=== PATIENT | male | born 1930 | race Caucasian/White ===

== ENCOUNTER 2016-11-22 14:00 | Inpatient (IN) | payer MEDICARE ==
[~2016-11-22] VITALS: Ht 179.1 cm; Wt 79.4 kg
--- NOTE | ~2016-11-22 | ECHO ---
Transthoracic Echocardiography Report (TTE) Demographics Patient Name GIANNI SINGH Date of Study 11/23/2016 Patient Number [id number] Visit Number [id number] Date of 1930 Room Number G6316 Gender Male Number Age 86 year(s) Referring Meredith Bobby [employer]er [employer] Blessing Salas, Physician RT,RVT,RDCS Physician Interpreting Sandy Hussein [employer] Department Supervisor Physician Supervising Ordering Meredith Bobby DO MD/MLP Physician Nurse Stress Laboratory [place] Conclusions Contractility Score Summary Global Left Ventricular Hypokinesis was noted. Summary The estimated left ventricular ejection fraction is 50-55% with normal wall thickness, WM and internal dimension. The left atrium is severely dilated. The right atrium is moderate to severely dilated. Dilated IVC with poor inspiratory collapse consistent with elevated RA pressure. Mildly dilated right ventricle. Pleural effusion present. Moderate-severe mitral regurgitation by color Doppler. There is mild aortic stenosis by the Continuity Equation. The peak velocity is 2.5 m/s, the mean gradient is 13 mmHg, and the valve area based on the continuity equation is 0.94 cm2, stroke volume index is 51 ml/m2. There is severe pulmonary hypertension. The pulmonary pressure (RVSP) is in the upper 60s or low 70s. Moderate-severe tricuspid regurgitation by color Doppler. Procedure Type of Study TTE procedure:2D Echocardiogram, M-Mode, Doppler , Color Doppler. Procedure Date Date: 11/23/2016 Start: 02:48 PM Study Location: Inpatient Portable Technical Quality: Good visualization Indications:Congestive heart failure. Additional Indications:Pleural effusion Appropriate Use Criteria: 9 Patient Status: Routine HR: 72 bpm BP: 99/59 mmHg M-Mode/2D Measurements LV Diastolic Dimension: 4.2 cm LV Systolic Dimension: 3.24 cm LV Septum Diastolic: 1.18 cm LV Septum Systolic: 1.33 cm LV PW Diastolic: 1.15 cm LV PW Systolic: 1.25 cm Cardiac Output: 3.66 l/min AO Root Dimension: 3.3 cm RV Diastolic Dimension: 3.2 cm LA Dimension: 3.9 cm EF Estimated: 45 % LA volume: 115 ml RV Base: 5 cm LVOT: 2 cm RV Mid: 3.9 cm LVOT VTI: 16.2 cm RV Length: 6.6 cm LV Stroke volume: 50.87 ml Doppler Measurements AV Peak Velocity: 2.51 m/s MV Peak E-Wave: 1.58 m/s AV Peak Gradient: 25.2 mmHg MV Peak A-Wave: 0.6 m/s AV Mean Gradient: 13 mmHg MV E/A Ratio: 2.62 LVOT Peak Velocity: 0.82 m/s MV P1/2t: 55 msec TR Gradient:25 mmHg PV Peak Velocity: 0.86 m/s Estimated RAP:10 mmHg PV Peak Gradient: 2.94 mmHg Estimated RVSP: 35 mmHg Estimated PASP: 35 mmHg E' Septal Velocity: 0.05 m/s A' Septal Velocity: 0.05 m/s MV E/E' Ratio: 34 Findings Left Ventricle Normal left ventricle size and function. Right Ventricle Mildly dilated right ventricle. Left Atrium The left atrium is severely dilated by LA volume index measurement. Right Atrium The right atrium is moderate to severely dilated. Dilated IVC with poor inspiratory collapse consistent with elevated RA pressure. Mitral Valve Normal mitral valve structure and function. Moderate-severe mitral regurgitation by color Doppler. Aortic Valve There is mild aortic stenosis by the Continuity Equation. The peak velocity is 2.5 m/s, the mean gradient is 13 mmHg, and the valve area based on the continuity equation is 0.94 cm2, stroke volume index is 51 ml/m2. Tricuspid Valve There is severe pulmonary hypertension. The pulmonary pressure (RVSP) is 62 mmHg. Moderate-severe tricuspid regurgitation by color Doppler. Pulmonic Valve Normal pulmonic valve structure and function. Pericardial Effusion No evidence of pericardial effusion. Miscellaneous Visualized portions of the aortic root and ascending aorta appear normal in size. Pleural Effusion Pleural effusion present. Contractility Score LV regional wall motion:(0-Non visualized 1-Normal 2-Hypokinesis 3-Akinesis 4-Dyskinesis 5-Aneurysm) Signature dtt: Jovita Delgado dtd: 11/23/16 1448 Physician Self Edit
--- NOTE | ~2016-11-22 | DS ---
PATIENT'S NAME: GIANNI SINGH [facility] AGE: 86 Y [address] ROOM: [address] [place] [address] LOCATION: GPCU ADMIT DATE: 11/22/2016 Discharge Summary DISCHARGE DATE: 11/30/2016 FAMILY PHYSICIAN: ANA MARIA LUI ATTENDING PHYSICIAN: Nakul MADDEN PRINCIPAL DIAGNOSES: 1. Palls-ce-cykflji hypoxic respiratory failure. 2. Heart failure with preserved ejection fraction [id number] exacerbation. 3. Acute kidney injury on chronic kidney disease, stage 3. 4. Severe chronic obstructive pulmonary disease exacerbation. 5. Hypertension. 6. Hyperlipidemia. 7. Hypothyroidism. HOSPITAL COURSE: An 86-year-old gentleman with multiple advanced comorbidities including chronic kidney disease as well as [place] Heart Association class III heart failure who was admitted to the [facility] from [place], [place] with acute shortness of breath, which have been worsening over the course of many days. He was found to have acute respiratory hypoxic failure. He was put on supplemental oxygen. Initial chest x-ray done showed bilateral pleural effusions as well as pulmonary edema. Initial lab work did show DANDY on CKD as well. His hemoglobin on presentation was 15. He was aggressively diuresed over the course of many days in the hospital. We took out about 12 L in total with the diuresis. Cardiology consultation was made as well as Cardiothoracic Surgery, but there was no big pleural effusion to be tapped and it got cleared with the IV diuresis. He was rather hard to get diuresed. He was put on Lasix drip in order to achieve that. It was noted in the hospital that his hemoglobin dropped from 15 to 10 over the course of many days. Gastroenterology consultation was made and they recommended that he have a known polyp that needs to be removed sometime. Due to his acute respiratory failure, secondary to heart failure, Gastroenterology did not deem that this is safe at this point to do any procedure. They want to make an appointment in 1 month for the full workup of anemia as well as colonoscopy. Echocardiography was done in the hospital, which did show heart failure with preserved ejection fraction, ejection fraction about 55%, he has severe TR, severely dilated both atria. He also got a CAT scan done on the admission to the hospital, which showed the findings consistent with acute overload, secondary to heart failure, and they could not include an infectious process. His inflammatory markers like procalcitonin was elevated and he was treated for pneumonia as well. His kidney function did improve little bit, but did not return to baseline. Apparently, this could be his new baseline. He will be discharged home on torsemide 20 mg p.o. b.i.d. He will need an immediate followup with PATIENT'S NAME: GIANNI SINGH [facility] AGE: 86 Y [address] ROOM: [id number] [place] [id number] LOCATION: GPCU ADMIT DATE: 11/22/2016 Discharge Summary DISCHARGE DATE: 11/30/2016 FAMILY PHYSICIAN: ANA MARIA LUI ATTENDING PHYSICIAN: Nakul MADDEN the physician in next 48 hours with a BMP to adjust the doses of torsemide. He also has atrial fibrillation, but he is not on any oral anticoagulation because of his anemia. Regarding his advanced comorbidities and advanced age, we consulted Palliative Care. The patient is DNR/DNI. I would recommend to pursue this avenue in future as well. DISCHARGE MEDICATIONS: Includes: 1. Amiodarone 200 mg p.o. everyday. 2. Pravastatin 40 mg p.o. every night. 3. Docusate 200 mg p.o. twice daily. 4. Levothyroxine 150 mcg p.o. every morning. 5. Tamsulosin 0.4 mg p.o. every night at bedtime. 6. DuoNeb 1 vial inhalation 4 times daily. 7. DuoNeb 1 vial inhalation every night at bedtime. 8. Tylenol 650 mg p.o. q.6 h. p.r.n. 9. Saliva Substitutes. 10. Pantoprazole 40 mg p.o. everyday. 11. Lactobacillus 1 capsule p.o. twice daily. 12. Polyvinyl chloride. 13. The new medications are torsemide 20 mg p.o. b.i.d. I did have pleasure to speak to Dr. Lui. I discussed the course of hospitalization, prognosis, and the need of a BMP and a physician visit within next 48 hours. I spent 1 hour in discharge planning and coordinating care of this patient. Most of the time was spent with the patient explaining to him about his prognosis, current condition. I also emphasized keeping the Gastroenterology appointment in 1 month. PROGRESS NOTE FROM THE DAY OF THE DISCHARGE: SUBJECTIVE: He is feeling much better. He does not complain of any shortness of breath. He did not complain of any fever or chills. No cough production. OBJECTIVE: VITAL SIGNS: Include blood pressure 118/77, pulse 74, respiratory rate of 18, and temperature 97.5. LUNGS: Clear to auscultation bilaterally today. CARDIOVASCULAR: Variable S1, normal S2. No murmurs, gallops, or rubs. EXTREMITIES: Did not reveal any edema contrary to +2 edema when he arrived to the hospital. ABDOMEN: Soft, nontender, nondistended. Bowel sounds present. LABORATORY DATA: Notable labs included pro-BNP of 39,000, which is down from 59,000, white count of 9.8, hemoglobin of 9.5, and platelets of 202. Other notable labs include a creatinine of 2.2 and a BUN of 67 and his previous baseline has been around 1.8 to 2. PATIENT'S NAME: GIANNI SINGH [facility] AGE: 86 Y [address] ROOM: [place] [address] [facility]ATION: [facility] ADMIT DATE: 11/22/2016 Discharge Summary DISCHARGE DATE: 11/30/2016 FAMILY PHYSICIAN: ANA MARIA LUI ATTENDING PHYSICIAN: Nakul MADDEN HEMODYNAMICS ON DISCHARGE: Stable. MD MAIA WOOD/jean /[id number] d: 12/01/16 0346 t: 12/03/16 1323, DISCHARGE SUMMARY
--- NOTE | ~2016-11-22 | CON ---
PATIENT'S NAME: ESTHER SINGHTER Bhavana [facility] AGE: 86 Y [address] ROOM: [place] [address] LOCATION: GPCU ADMIT DATE: 11/22/2016 Consultation DISCHARGE DATE: 11/30/2016 FAMILY PHYSICIAN: ANA MARIA JORDAN ATTENDING PHYSICIAN: Nakul MADDEN DATE OF CONSULTATION: 11/29/2016 REFERRING PHYSICIAN: Lane Harper DO REFERRING PROVIDER: Salas Marina MD REASON FOR CONSULTATION: Anemia. HISTORY OF PRESENT ILLNESS: This is a very pleasant, 86-year-old gentleman who is well known to our Gastroenterology Services from previous admission. The patient was hospitalized in February and March of 2016. At that point, the patient was found to be anemic as we did complete an upper endoscopy. This was a normal study. A full colonoscopy was completed, but limited secondary to the patient having chest tubes at that time and unable to be positioned correctly. There were 3 polyps measuring less than 5 mm in size found in the rectum. Polyps were removed at that point. There were also 2 small distal colon polyps that were not removed as they were located on hemorrhoids. There was also a large, flat polyp on the fold in the ascending colon that was biopsied that showed adenoma, though not removed secondary to inability to rotate the patient secondary to his chest tubes. We were asked to see in consultation for this hospitalization as the patient was admitted on November 22, 2016, with worsening of acute on chronic hypoxic respiratory failure. The patient was seen and examined. He denies any known blood in his stool. The patient's hemoglobin on admission was 10.9, recheck this morning was 9.2. It appears that his hemoglobin has remained stable with no evidence of blood loss, though Hematest positive. The patient denies any current chest pain or chest pressure. He does get significantly short of breath with ambulation and more movement. The patient has been currently residing at a alf for rehab needs as plan for the patient to be returned to the alf the following day. The patient currently denies any complaints at this time. PAST MEDICAL HISTORY: Chronic kidney disease, COPD, CHF, mitral regurgitation, diastolic heart failure, atrial fibrillation, and pulmonary hypertension. PAST SURGICAL HISTORY: PATIENT'S NAME: SAMANTHA [facility] AGE: 86 Y [address] ROOM: [address] [place], [place] [address] LOCATION: GPCU ADMIT DATE: 11/22/2016 Consultation DISCHARGE DATE: 11/30/2016 FAMILY PHYSICIAN: ANA MARIA JORDAN ATTENDING PHYSICIAN: Nakul MADDEN Chest tube placement, carotid endarterectomy, and upper endoscopy and colonoscopy completed in March 2016. SOCIAL HISTORY: The patient lives with his . He currently resides at a alf for rehab needs. He has a 70-year history of tobacco use and has not smoked for the past 6 months now. The patient denies any alcohol or illicit drug use. FAMILY HISTORY: Positive for cardiovascular disease in his brother. The patient's father had a stroke. ALLERGIES: KEFLEX. CURRENT MEDICATIONS: Please refer to the medication administration record. REVIEW OF SYSTEMS: All point review of systems was completed, all were negative except for those identified in the History of Present Illness. PHYSICAL EXAMINATION: GENERAL: A very pleasant, 86-year-old gentleman who appears to be in no acute distress. VITAL SIGNS: Temperature 97.9, pulse of 79, respirations of 20, blood pressure 117/69, oxygen saturation is 93% on 2 L. SKIN: [place], warm, and dry. No jaundice. HEENT: Head is normocephalic and atraumatic. Pupils are equal, round, and reactive to light. Sclerae are clear, nonicteric. Oral mucosa is pink and moist. No thyromegaly. NECK: Soft and supple. CARDIOVASCULAR: Irregularly irregular. Grade 1 systolic murmur heard on the left side. ABDOMEN: Soft, round, nontender, and nondistended. Bowel sounds positive x4 quadrants. MUSCULOSKELETAL: No muscle weakness or atrophy. EXTREMITIES: No clubbing or cyanosis. 2+ edema noted to bilateral lower extremities, though this has improved. NEUROLOGICAL: Grossly nonfocal. LABORATORY AND DIAGNOSTIC DATA: White blood cell count 9.6, hemoglobin of 9.2, hematocrit of 30.3, MCV is 89.90, and platelets of 177. Chemistry panel includes a glucose of 176, BUN of 68, creatinine is 2.2, sodium 144, potassium 4.1, chloride of 101, and CO2 PATIENT'S NAME: SAMANTHA GIANNI Bhavana [facility] AGE: 86 Y [address] ROOM: [address] [place], [place] [address] LOCATION: GPCU ADMIT DATE: 11/22/2016 Consultation DISCHARGE DATE: 11/30/2016 FAMILY PHYSICIAN: ANA MARIA JORDAN ATTENDING PHYSICIAN: Nakul MADDEN of 37. Albumin of 2.9. Hematest positive stool. ASSESSMENT AND PLAN: Again, this is a very pleasant, 86-year-old gentleman who was recently admitted with acute on chronic hypoxic respiratory failure. We were asked to see in consultation for the patient's anemia. The patient previously had undergone an upper endoscopy and colonoscopy in March 2016. He did note that a large flat polyp was not removed secondary to the patient's inability to rotate secondary to chest tubes at that time. The patient does need outpatient followup at this point. When medically optimized, the patient will need a repeat colonoscopy and possible upper endoscopy for evaluation of the anemia as well as polypectomy. Upon discharge, the patient will be scheduled to follow up in our clinic in one month for continued monitoring as well as evaluation for medically optimal to undergo an upper endoscopy and colonoscopy. Thank you for this consult. AMBER SOLIS APRN FOR MD DELLA BREWER/jean /[id number] d: 11/30/16 1145 t: 12/05/16 1344, CONSULTATION REPORT
--- NOTE | ~2016-11-22 | HP ---
PATIENT'S NAME: GIANNI SINGH [facility] AGE: 86 Y [address] ROOM: [address] [place], [place] [address] LOCATION[facility] ADMIT DATE: 11/22/2016 History & Physical DISCHARGE DATE: FAMILY PHYSICIAN: PHYSICIAN, UNKNOWN ATTENDING PHYSICIAN: Nakul MADDEN DATE OF SERVICE: CHIEF COMPLAINT: Worsening of acute on chronic hypoxic respiratory failure. HISTORY OF PRESENT ILLNESS: The patient is an 86-year-old gentleman with a past medical history significant for COPD, diastolic heart failure, pulmonary hypertension, atrial fibrillation, and mitral regurg, who presents in here from [facility] with worsening of acute hypoxic respiratory failure and pleural effusion. The patient was admitted at [facility] on November 16 after a fall. The patient was admitted and was treated with physical therapy and occupational therapy. The patient also was found to be in worsening hypoxic respiratory failure. The patient was on 2 L home oxygen at home, however, was found to require more oxygen demand. The patient was started on diuretic treatment with some improvement. However, symptoms could not resolve. Chest x-ray done at outside hospital shows worsening of pleural effusion especially on the right side. Our hospital was contacted for possible pleural effusion, thoracocentesis or PleurX placement for drainage. Dr. Samano was contacted. Dr. Harper had seen the patient in the past and had placed a PleurX catheter on the right and a pigtail on the left on the last admission in 2015. Thus, the patient was accepted to our hospital for further evaluation of pleural effusion and heart failure. The patient's last admission to our hospital in June 2016 for possible infected PleurX catheter. PleurX was taken at that admission, and the patient was treated with Levaquin for a positive wound culture for Staph. The patient currently reports of worsening of shortness of breath and edema. The patient denies chest pain, abdominal pain, nausea, vomiting, diarrhea, fever, and productive cough but reports of wheezing. MEDICAL HISTORY: Chronic kidney disease, COPD, CHF, mitral regurg, diastolic heart failure, atrial fibrillation, and pulmonary hypertension. SURGICAL HISTORY: Chest tube placement, carotid endarterectomy. SOCIAL HISTORY: The patient lives with his . He has had 70-year history of tobacco use but has not smoked for 6 months now. The patient denies drinking. PATIENT'S NAME: GIANNI SINGH [facility] AGE: 86 Y [address] ROOM: [address] [place], [place] [address] LOC[facility] ADMIT DATE: 11/22/2016 History & Physical DISCHARGE DATE: FAMILY PHYSICIAN: PHYSICIAN, UNKNOWN ATTENDING PHYSICIAN: Nakul MADDEN FAMILY HISTORY: Positive for cardiovascular disease in brother and stroke in father. REVIEW OF SYSTEMS: All systems have been reviewed and are negative except for what I mentioned in the HPI. PHYSICAL EXAMINATION: VITAL SIGNS: Afebrile, blood pressure 131/81, heart rate of 91, oxygen saturation of 92 on 10 L nasal cannula. GENERAL APPEARANCE: The patient is in mild respiratory distress. HEAD: Normocephalic, atraumatic. EYES: Sclerae nonicteric. NOSE: No nasal discharge. EARS: No ear discharge. ORAL CAVITY: Dry oral mucosa. NECK: Positive JVD. CHEST: Bibasilar rales and mild expiratory wheezing. HEART: Irregularly irregular. Grade 1 systolic murmur heard on the left lower sternal border. ABDOMEN: Soft, nontender, and nondistended. SKIN: Warm to touch. EXTREMITIES: 3+ pitting edema up to abdomen. DIRECTOR OF CONTENT MARKETING: Alert and oriented x3. Motor and sensory grossly intact. MUSCULOSKELETAL: Range of motion intact. No obvious joint effusion. LABORATORY DATA: Labs drawn at [place] shows a hemoglobin of 9.8, white blood cell count of 8.6. Sodium of 143, potassium 3.7, CO2 of 32, and creatinine of 1.9. IMAGING DATA: Chest x-ray done here shows bilateral pleural effusion and right-sided intrapleural fluid. Chest x-ray read by me, waiting for radiology report. ASSESSMENT AND PLAN: 1. Acute on chronic hypoxic respiratory failure. Etiology most likely secondary to pleural effusion due to diastolic heart failure and worsening of pulmonary hypertension. The patient appears to be fluid overloaded. Chest x-ray showed vascular congestion and intrapleural effusion with bilateral pleural effusion. The patient appears fluid overloaded with edema up to abdomen and positive JVD and bibasilar rales. We will start the patient on Lasix drip 5 mg an hour as the patient might also be fluid dependent as he has known pulmonary hypertension with right ventricular dilation. We will diurese the patient gently, follow the PATIENT'S NAME: SINGH, GIANNI L [facility] AGE: 86 Y [address] ROOM: [address] [place] [address] [facility] ADMIT DATE: 11/22/2016 History & Physical DISCHARGE DATE: FAMILY PHYSICIAN: PHYSICIAN, UNKNOWN ATTENDING PHYSICIAN: Nakul MADDEN patient clinically. We will have strict I's and O's and volume restriction of 1.5 L in 24 hours. The patient also might be having underlying chronic obstructive pulmonary disease exacerbation as the patient is a known chronic obstructive pulmonary disease with 70-year history of smoking. On physical, the patient appears to be wheezing. We will start the patient on DuoNeb q.4 hours and Solu-Medrol 40 mg b.i.d. We will acquire a CT chest to further investigate the pleura effusion. To consult Dr. Harper for possible pleural fluid drainage. 2. Decompensated diastolic heart failure. See problem #1. 3. Acute chronic obstructive pulmonary disease exacerbation. See problem #1. 4. Atrial fibrillation, currently rate controlled. We will continue home medication of amiodarone. Currently, the patient is not on blood thinner. The patient has not been on blood thinner as an outpatient also. We will hold blood thinner as the patient might have pleural effusion drainage for now. To discuss anticoagulation with technical training manager, Dr. Grove. 5. Hypothyroidism. Continue medication. 6. Pleural effusion. See problem #1. 7. Chronic kidney disease stage 3, is stable, most likely secondary to cardiorenal. The patient's creatinine currently is 1.9 and baseline is 1.9 and 1.8, stable, follow clinically. 8. Physical deconditioning. We will acquire PT, OT when the patient is stable. 9. Code status. Discussion was made about code status with the patient. The patient's code status is DNR/DNI on admission. I have personally reviewed the patient's medical record including but not limited to blood work and radiology. Total time spent with the patient is greater than 70 minutes, more than 50% of the time is spent in direct patient care and patient consultation. Case was reviewed with the patient, nursing staff. Question was answered to the patient's satisfaction. Case was reviewed with Dr. Harper. We will admit the patient to as an inpatient. Code status on admission is DNR/DNI. MD KIERRA DOWNING/jean /[id number] D: [id number] T: [id number] HISTORY & PHYSICAL
--- NOTE | ~2016-11-22 | CON ---
PATIENT'S NAME: GIANNI SINGH [facility] AGE: 86 Y [address] ROOM: [place] [address] LOCATION: GPCU ADMIT DATE: 11/22/2016 Consultation DISCHARGE DATE: FAMILY PHYSICIAN: ANA MARIA JORDAN DO ATTENDING PHYSICIAN: Nakul BELLO DATE OF CONSULTATION: 11/27/2016 REFERRING PHYSICIAN: Lane Harper DO The patient of Dr. Bello. Dear Dr. Bello: Thank you for asking me to see Mr. Singh who is an 86-year-old male patient who was hospitalized in [facility] on November 16 after a fall. He was given physical therapy and diuretic therapy because of congestive heart failure and hypoxic respiratory failure and eventually was transferred here as he was not getting any better. He has a history of pleural effusions in the past and PleurX tube was placed on the right and a pigtail on the left in 2015. Apparently, the PleurX catheter got infected and eventually got taken out and has had Staph growing out of it. The patient has been seeing Dr. Grove who had treated him in the past with Eliquis and amiodarone for paroxysmal atrial fibrillation. The patient also has peripheral vascular disease, normal ejection fraction, severely dilated left atrium and right atrium, increased right atrial pressures, dilated right ventricle pleural effusion on the left, odrnrmum-as-oiwftf MR, mild , and wjoccgil-la-trlsmw pulmonary hypertension with pulmonary pressures in the 60s and 70s with wyksuxpj-gi-flvdwc tricuspid regurgitation by echocardiogram on . MEDICAL HISTORY: The patient has history of diastolic congestive heart failure. In addition, he has history of GI bleed at some point, for which he has received some blood transfusions, CKD, hypertension, hyperlipidemia, hypothyroidism, and severe COPD. He quit smoking about 6 months ago. The patient has had no syncope or palpitation. He does have history of ankle swelling. LIST OF MEDICATIONS NOW: 1. Codeine. 2. Doxycycline 100 b.i.d. 3. Heparin 5000 every 8 hours. 4. Amiodarone 200 mg a day. PATIENT'S NAME: GIANNI SINGH [facility] AGE: 86 Y [address] ROOM: [place] [address] LOCATION: GPCU ADMIT DATE: 11/22/2016 Consultation DISCHARGE DATE: FAMILY PHYSICIAN: ANA MARIA JORDAN DO ATTENDING PHYSICIAN: Nakul BELLO 5. Levothyroxine 150 mcg a day. 6. Tamsulosin 0.4 mg. 7. Pravastatin 40 mg at bedtime. 8. Ipratropium and albuterol 4 times a day. 9. Prednisone. ALLERGIES: CEPHALEXIN. MEDICATIONS THAT ARE CURRENTLY HELD: Furosemide and lactulose. PAST MEDICAL HISTORY: 1. Abdominal aortic aneurysm repair. 2. Carotid endarterectomy. 3. Carotid grafting. 4. Right hip arthroplasty. SOCIAL HISTORY: The patient is . He smoked until 6 months ago. His appetite is not the best, sleep is not very good. FAMILY HISTORY: Brother had an WA at age of 40 and . Twin brother has had coronary artery disease. REVIEW OF SYSTEMS: Shortness of breath. 12-point review of systems reveal, 1. Macular degeneration. 2. Cataracts. 3. No chest pain. 4. History of melena and anemia. 5. CKD. 6. Urinary frequency and urgency. PHYSICAL EXAMINATION: VITAL SIGNS: His blood pressure is 120/80, heart rate is in the 60s and regular, respirations 18. HEENT: Normal. NECK: Supple with no JVD, thyromegaly, or carotid bruit. PMI is not well located. CARDIOVASCULAR: First and second heart sounds are regular. He does have a systolic murmur best heard in the left sternal edge, grade 1/6. ABDOMEN: Soft. EXTREMITIES: Reveal 1+ edema. PATIENT'S NAME: GIANNI SINGH [facility] AGE: 86 Y [address] ROOM: [id number] [place], [place] [id number] [facility] ADMIT DATE: 11/22/2016 Consultation DISCHARGE DATE: FAMILY PHYSICIAN: ANA MARIA JORDAN DO ATTENDING PHYSICIAN: Nakul BELLO CHEST: Chest examination, he does have moving air, but he does have some crackles in his bases bilaterally. ASSESSMENT: 1. Diastolic congestive heart failure. 2. The patient probably has underlying coronary artery disease. 3. History arthrosclerotic disease in the form of abdominal aortic aneurysm repair and carotid endarterectomy. 4. History of paroxysmal atrial fibrillation, currently off oral anticoagulation. I will check his Hemoccults and if it is negative, he should go back on anticoagulation. 5. Chronic kidney disease probably is secondary to the diuretic that has been used so far. RECOMMENDATION: We will continue to diuresis, and once he is quite dry, we will try to slowly reintroduce his usual medications and try to get his renal function back towards normal. Again, I appreciate this opportunity to participate in the care of Mr. Singh. MD AYANA GARNICA/jean /[id number] d: 11/28/16 1415 t: 12/05/16 1643, CONSULTATION REPORT
--- NOTE | ~2016-11-22 | CON ---
PATIENT'S NAME: ESTHER SINGHTER [facility] AGE: 86 Y [address] ROOM: [address] [place] [address] [facility] AD[facility] DATE: 11/22/2016 Consultation DISCHARGE DATE: FAMILY PHYSICIAN: ANA MARIA JORDAN DO ATTENDING PHYSICIAN: Nakul MADDEN DATE OF CONSULTATION: 11/23/2016 REFERRING PHYSICIAN: Lane Harper DO LOCATION: [place] [address]. REASON FOR CONSULTATION: This is a palliative care for chronic disease talk and goals of care. HISTORY OF PRESENT ILLNESS: This 86-year-old frail male has had several admissions over the past 6 months in March, April, June, after last admission was sent to a swing bed the in [place], [place], was there for a few months and was home for approximately a month and declined. He had recently had a PleurX drain put in in June and that drain was pulled by Dr. Harper. He comes in with acute respiratory failure with a history of chronic hypoxia. He has a known history of COPD, diastolic heart failure, pulmonary hypertension, atrial fibrillation, and mitral regurgitation. He went to the [facility] and continued to decline being hypoxic and transferred to [facility] for a higher level of care. Currently, the patient complains of being very short of breath, is on oxygen 10 L, his respirations are in the 50s, very short of breath. He denies any chest pain, abdominal pain, nausea, or vomiting. He does have a productive cough and reports wheezing. PAST MEDICAL HISTORY: Chronic kidney disease, stage 3; mitral regurgitation; pulmonary hypertension; COPD; chronic hypoxia; respiratory failure; history of a GI bleed; diastolic heart failure; history of parapneumonic effusion, loculation, and left pleural effusion and recurrent right pleural effusion with PleurX drain which was put in; and chronic atrial fibrillation. PAST SURGICAL HISTORY: Chest tube placement, PleurX drain placement, carotid endarterectomy, tonsillectomy, cataract removal, right hip hemiarthroplasty, and colonoscopy with adenomatous changes. SOCIAL HISTORY: He has been living at home with his . He is a former smoker, has a 70- txae-lek-aotv history, quit 4-5 months ago. Does have an alcohol history and [facility]GE[facility] 86 Y [address] 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 No illicit drug use. REVIEW OF SYSTEMS: A complete review of systems was done and is negative except as mentioned in the HPI or listed below. GI: Last bowel movement was 11/14. Appetite has been decreased. MUSCULOSKELETAL: Increased weakness. states he could not walk a few feet to get to the car before admission, had been declining at home, very weak. PHYSICAL EXAMINATION: GENERAL: This is a frail 86-year-old male, in respiratory distress. VITAL SIGNS: Temperature 97.8, pulse 82, respirations 28, blood pressure 131/89, and O2 saturations 82%. He is 5 feet 10 inches and weighs 174 pounds with a BMI of 24.9; on last admission in June, the patient's weight was 132 with a BMI of 18.4. GENERAL: Alert, slightly anxious due to respiratory distress. SKIN: Warm and dry. Color pale. HEENT: Normocephalic and atraumatic. Sclerae are nonicteric. Conjunctivae are pale pink. Mouth is pink and moist without exudate. LYMPH: No cervical adenopathy or thyromegaly. RESPIRATORY: Coarse and diminished with wheezes bilaterally. CARDIAC: S1, S2, tachy. Edema noted 3 to 4+ up to groin. Groin is swollen and edematous. NEURO: Grossly intact. No deficits. MUSCULOSKELETAL: Able to move all extremities. Decreased muscle mass. EXTREMITIES: No cyanosis or deformity. Palliative performance scale is 20%, totally bed-bound, unable to do any activity, total care, decreased intake minimal to sips, and conscious level is full. IMPRESSION: 1. Respiratory distress. 2. Edema. 3. Anxiety. PLAN: 1. Discuss with the patient shortly his overall condition. He has a fair understanding of his diastolic heart failure, COPD, respiratory distress, increasing edema, pleural effusions with PleurX drain history in June, and overall decline in the past few weeks and being at home. I did not discuss a long time due to the patient's distress. We will try to get a hold of and have a longer discussion when she comes possibly tomorrow or the next day. PATIENT'S NAME: GIANNI SINGH [facility] AGE: 86 Y [address] ROOM: [id number] [place] [id number] [facility] ADMIT DATE: 11/22/2016 Consultation DISCHARGE DATE: FAMILY PHYSICIAN: ANA MARIA JORDAN DO ATTENDING PHYSICIAN: Nakul MADDEN 2. Code status and advanced directives: The patient is a do not resuscitate/do not intubate. The patient states he does not have an advanced directive. He is , has 2 sons, one lives close by and one lives in [place]. 3. Goals: Breathe easier. Okay to try BiPAP to help with breathing. We will address goals of care and long-term goals and do education on end- stage COPD and heart failure. Total time was 35 minutes with 30 minutes for counseling and coordination of care. Thank you for allowing me to assist this patient and family. CARINE TOTH NP FOR MD JOEY RENEE/jean /[id number] d: 11/24/16 2330 t: 12/02/16 0743, CONSULTATION REPORT
[~2016-11-22 14:00] MED LIST: ARTIFICIAL TEAR15 ML OPHTH; BACITRACIN ZIN1 EAC1 TOP; BACTROBAN TOP; CALCIUM 600 +1 EAC6 PO; CALMOSEPTINE OI71 GM TOP; CETAPHIL CREAM454 GM TOP; COLACE100 MG PO; CORDARONE,PACE200 MG PO; DIFLUCAN100 MG PO; ELIQUIS2.5 MG PO; FLOMAX0.4 MG PO; FLORASTOR250 MG PO; FLORINEF0.1 MG PO; IPRAT-ALBUT 0.5-3 ML INH; K-TAB 10MEQ10 MEQ PO; LASIX40 MG PO; LEVAQUIN 250 M250 MG PO; LEVOTHROID (S150 MCG PO; LOPRESSOR50 M1 PO; MAXZIDE-751 TAB PO; MILK OF MA400 MG/5 M PO; NICODERM / HABIT7 MG TRANS; PRAVACHOL40 MG PO; PRESERVISION A1 EAC1 PO; PROAMATINE5 MG PO; PROBIOTIC1 EAC1 PO; PROTONIX40 MG PO; TAPAZOLE5 MG PO; VITAMIN D PO
[2016-11-22] MEDS ORDERED: FLOMAX0.4 MG PO (16:17)
[2016-11-22] MEDS ORDERED: TYLENOL325 MG PO (16:19)
[2016-11-22] MEDS ORDERED: LASIX INJ40 MG/4 ML IVP (16:20)
[2016-11-22] MEDS ORDERED: DUONEB INH (16:21)
[2016-11-22] MEDS ORDERED: CALMOSEPTINE OI71 GM TOP (16:22)
[2016-11-22] MEDS ORDERED: BIOTENE)(DRY MO16 OZ PO (16:22)
[2016-11-22] MEDS ORDERED: AYR SALINE NA14.1 GM NOSE (16:23)
[2016-11-22] MEDS ORDERED: ARTIFICIAL TEAR15 ML OPHTH (16:31)
[2016-11-22] MEDS ORDERED: PROBIOTIC1 EAC1 PO (16:31)
[2016-11-22 17:25] LABS: BASOPHIL % 0.3 %; HEMATOCRIT 36.1 % (33.0-50.0); HEMOGLOBIN 10.9 g/dL (11.0-16.0); IMMATURE GRANULOCYTE # 0.1 K/uL (0.0-0.3); IMMATURE GRANULOCYTE % 0.7 %; LYMPHOCYTE # 0.6 K/uL (0.8-4.0); LYMPHOCYTE % 4.2 %; MCH 27.8 pg (27.0-34.0); MCHC 30.2 gm/dL (32.0-36.5); MCV 92.1 fl (83.0-98.0); MONOCYTE # 1.9 K/uL (0.0-1.0); MONOCYTE % 12.6 %; MPV 9.9 fl (9.4-12.4); NEUTROPHIL # (ANC) 12.4 K/uL (1.4-9.0); NEUTROPHIL % 82.2 %; NRBC % 0 /100WBC (0-0.00); PLATELET COUNT 126 K/uL (150-450); RBC 3.92 M/uL (3.50-5.50); RDW-CV 19.8 % (11.9-14.6); WBC 15.1 K/uL (4.0-11.0)
[2016-11-22 17:39] LABS: BICARBONATE 32.7 mmol/L (18.0-23.0); PCO2 47 mmHg (35-45); PO2 87 mmHg (80-90)
[2016-11-22 17:46] LABS: ALBUMIN 2.4 gm/dL (3.5-5.0); ANION GAP 10.9 (10.0-19.0); CALCIUM 7.9 mg/dL (8.5-10.5); CREATININE 2.2 mg/dL (0.6-1.3); MAGNESIUM 1.9 mg/dL (1.8-2.6); POTASSIUM 3.9 mMol/L (3.7-5.1); TOTAL BILIRUBIN 0.9 mg/dL (0.0-1.5); TOTAL PROTEIN 6.9 g/dL (6.0-8.4)
[2016-11-23 06:14] LABS: ALBUMIN 2.2 gm/dL (3.5-5.0); ANION GAP 11.6 (10.0-19.0); CALCIUM 7.9 mg/dL (8.5-10.5); POTASSIUM 3.6 mMol/L (3.7-5.1); TOTAL BILIRUBIN 0.9 mg/dL (0.0-1.5); TOTAL PROTEIN 6.4 g/dL (6.0-8.4)
[2016-11-23 17:11] LABS: ANION GAP 12.5 (10.0-19.0); CALCIUM 8.1 mg/dL (8.5-10.5); CREATININE 2.3 mg/dL (0.6-1.3); POTASSIUM 3.5 mMol/L (3.7-5.1)
[2016-11-24 06:29] LABS: ALBUMIN 2.9 gm/dL (3.5-5.0); ANION GAP 11.4 (10.0-19.0); CALCIUM 8.2 mg/dL (8.5-10.5); CREATININE 2.2 mg/dL (0.6-1.3); PHOSPHORUS 2.9 mg/dL (2.5-4.9); POTASSIUM 3.4 mMol/L (3.7-5.1)
[2016-11-25 03:53] LABS: HEMATOCRIT 30.9 % (33.0-50.0); HEMOGLOBIN 9.4 g/dL (11.0-16.0); MCH 27.6 pg (27.0-34.0); MCHC 30.4 gm/dL (32.0-36.5); MCV 90.9 fl (83.0-98.0); MPV 9.6 fl (9.4-12.4); RDW-CV 19.1 % (11.9-14.6)
[2016-11-25 04:00] LABS: PLATELET COUNT 152 K/uL (150-450)
[2016-11-25 04:08] LABS: ANION GAP 12.7 (10.0-19.0); CALCIUM 8.6 mg/dL (8.5-10.5); CREATININE 2.2 mg/dL (0.6-1.3); POTASSIUM 3.7 mMol/L (3.7-5.1)
[2016-11-25 05:00] LABS: ABSOLUTE NEUTROPHIL CT (ANC) 8.9 K/uL (1.4-9.0); BANDED NEUTROPHIL # 0.2 K/uL (0.0-0.1); BANDED NEUTROPHILS % 2 %; LYMPHOCYTE # 0.2 K/uL (0.8-4.0); LYMPHOCYTE % 2 %; MONOCYTE # 0.9 K/uL (0.0-1.0); SEGMENTED NEUTROPHIL # 8.7 K/uL (1.4-9.0); SEGMENTED NEUTROPHIL % 87 %
[2016-11-26 06:28] LABS: BASOPHIL % 0.1 %; EOSINOPHIL % 0.2 %; HEMATOCRIT 32.8 % (33.0-50.0); HEMOGLOBIN 9.7 g/dL (11.0-16.0); IMMATURE GRANULOCYTE # 0.1 K/uL (0.0-0.3); IMMATURE GRANULOCYTE % 0.6 %; LYMPHOCYTE # 0.5 K/uL (0.8-4.0); LYMPHOCYTE % 5.8 %; MCH 27.3 pg (27.0-34.0); MCHC 29.6 gm/dL (32.0-36.5); MCV 92.4 fl (83.0-98.0); MONOCYTE # 1.2 K/uL (0.0-1.0); MONOCYTE % 13.2 %; MPV 9.3 fl (9.4-12.4); NEUTROPHIL # (ANC) 7.1 K/uL (1.4-9.0); NEUTROPHIL % 80.1 %; NRBC % 0 /100WBC (0-0.00); PLATELET COUNT 150 K/uL (150-450); RBC 3.55 M/uL (3.50-5.50); RDW-CV 19.1 % (11.9-14.6); WBC 8.9 K/uL (4.0-11.0)
[2016-11-26 06:48] LABS: CREATININE 2.1 mg/dL (0.6-1.3)
[2016-11-27 04:04] LABS: HEMOGLOBIN 9.8 g/dL (11.0-16.0); MCH 27.3 pg (27.0-34.0); MCHC 29.7 gm/dL (32.0-36.5); MCV 91.9 fl (83.0-98.0); MPV 9.3 fl (9.4-12.4); PLATELET COUNT 138 K/uL (150-450); RBC 3.59 M/uL (3.50-5.50); RDW-CV 19.1 % (11.9-14.6); WBC 7.6 K/uL (4.0-11.0)
[2016-11-27 04:17] LABS: ANION GAP 11.2 (10.0-19.0); CALCIUM 8.7 mg/dL (8.5-10.5); CREATININE 2.1 mg/dL (0.6-1.3); POTASSIUM 4.2 mMol/L (3.7-5.1)
[2016-11-27 05:30] LABS: ABSOLUTE NEUTROPHIL CT (ANC) 7.3 K/uL (1.4-9.0); BANDED NEUTROPHIL # 0.3 K/uL (0.0-0.1); BANDED NEUTROPHILS % 4 %; LYMPHOCYTE # 0.2 K/uL (0.8-4.0); LYMPHOCYTE % 2 %; MONOCYTE # 0.1 K/uL (0.0-1.0); SEGMENTED NEUTROPHIL % 92 %
[2016-11-28 04:43] LABS: HEMATOCRIT 31.2 % (33.0-50.0); HEMOGLOBIN 9.3 g/dL (11.0-16.0); MCH 27.3 pg (27.0-34.0); MCHC 29.8 gm/dL (32.0-36.5); MCV 91.5 fl (83.0-98.0); PLATELET COUNT 160 K/uL (150-450); RBC 3.41 M/uL (3.50-5.50); WBC 8.6 K/uL (4.0-11.0)
[2016-11-28 05:10] LABS: CALCIUM 9.2 mg/dL (8.5-10.5); CREATININE 2.2 mg/dL (0.6-1.3)
[2016-11-28 05:42] LABS: ABSOLUTE NEUTROPHIL CT (ANC) 7.6 K/uL (1.4-9.0); BANDED NEUTROPHIL # 0.3 K/uL (0.0-0.1); BANDED NEUTROPHILS % 4 %; LYMPHOCYTE # 0.7 K/uL (0.8-4.0); LYMPHOCYTE % 8 %; MONOCYTE # 0.3 K/uL (0.0-1.0); SEGMENTED NEUTROPHIL # 7.2 K/uL (1.4-9.0); SEGMENTED NEUTROPHIL % 84 %
[2016-11-29 04:43] LABS: HEMATOCRIT 30.3 % (33.0-50.0); HEMOGLOBIN 9.2 g/dL (11.0-16.0); MCH 27.3 pg (27.0-34.0); MCHC 30.4 gm/dL (32.0-36.5); MCV 89.9 fl (83.0-98.0); MPV 8.9 fl (9.4-12.4); PLATELET COUNT 177 K/uL (150-450); RBC 3.37 M/uL (3.50-5.50); RDW-CV 18.9 % (11.9-14.6); WBC 9.6 K/uL (4.0-11.0)
[2016-11-29 05:03] LABS: CALCIUM 9.2 mg/dL (8.5-10.5); CREATININE 2.2 mg/dL (0.6-1.3); POTASSIUM 4.1 mMol/L (3.7-5.1)
[2016-11-29 05:04] LABS: ANION GAP 10.1 (10.0-19.0)
[2016-11-29 05:20] LABS: ABSOLUTE NEUTROPHIL CT (ANC) 8.8 K/uL (1.4-9.0); BANDED NEUTROPHIL # 0.4 K/uL (0.0-0.1); BANDED NEUTROPHILS % 4 %; LYMPHOCYTE # 0.4 K/uL (0.8-4.0); LYMPHOCYTE % 4 %; MONOCYTE # 0.4 K/uL (0.0-1.0); SEGMENTED NEUTROPHIL # 8.5 K/uL (1.4-9.0); SEGMENTED NEUTROPHIL % 88 %
[2016-11-30 04:48] LABS: HEMATOCRIT 31.3 % (33.0-50.0); HEMOGLOBIN 9.5 g/dL (11.0-16.0); IMMATURE GRANULOCYTE # 0.1 K/uL (0.0-0.3); LYMPHOCYTE # 0.5 K/uL (0.8-4.0); LYMPHOCYTE % 5.4 %; MCH 27.1 pg (27.0-34.0); MCHC 30.4 gm/dL (32.0-36.5); MCV 89.2 fl (83.0-98.0); MONOCYTE # 0.7 K/uL (0.0-1.0); MONOCYTE % 7.3 %; NEUTROPHIL # (ANC) 8.4 K/uL (1.4-9.0); NEUTROPHIL % 86.3 %; NRBC % 0 /100WBC (0-0.00); PLATELET COUNT 202 K/uL (150-450); RBC 3.51 M/uL (3.50-5.50); RDW-CV 18.7 % (11.9-14.6); WBC 9.8 K/uL (4.0-11.0)
[2016-11-30 05:07] LABS: CALCIUM 9.1 mg/dL (8.5-10.5); CREATININE 2.2 mg/dL (0.6-1.3); POTASSIUM 4.6 mMol/L (3.7-5.1)
[2016-11-30 05:12] LABS: ALBUMIN 3.2 gm/dL (3.5-5.0); TOTAL PROTEIN 6.7 g/dL (6.0-8.4)
[2016-11-30 05:19] LABS: ANION GAP 11.6 (10.0-19.0); TOTAL BILIRUBIN 0.4 mg/dL (0.0-1.5)
== END 2016-11-30 10:20 | DRG 291 ==
LOC: GPCU 15:48
PROVIDERS: Internal Medicine; Internal Medicine Interventional Cardiology; ADMIT Internal Medicine
DX: I13.0 Hypertensive heart and chronic kidney disease with heart failure and stage 1 through stage 4 chronic kidney disease, or unspecified chronic kidney disease (principal); I50.33 Acute on chronic diastolic (congestive) heart failure; J96.21 Acute and chronic respiratory failure with hypoxia; N17.9 Acute kidney failure, unspecified; J18.9 Pneumonia, unspecified organism; J44.1 Chronic obstructive pulmonary disease with (acute) exacerbation; I27.2 Other secondary pulmonary hypertension; N18.3 Chronic kidney disease, stage 3 (moderate); I48.0 Paroxysmal atrial fibrillation; I07.1 Rheumatic tricuspid insufficiency; Z51.5 Encounter for palliative care; Z66 Do not resuscitate; E03.9 Hypothyroidism, unspecified; E87.6 Hypokalemia; D64.9 Anemia, unspecified
CPT/HCPCS: G0237; G0424; J0696; J1120; J1335; J1644; J1940; J2270; J2920; J3480; J7040; J7050; J7512; P9047